=== PATIENT | male | born 1965 | race Caucasian/White ===

== ENCOUNTER 2017-04-09 10:17 | Inpatient (IN) | payer OTHER ==
--- NOTE | ~2017-04-09 | HP ---
Unit #: [id number] #: [id number] Patient: GT DOLL [id number] [place] [address] [id number] I MR#: [id number] NAME: GT DOLL ROOM: P180 Age: 51 Sex: M Admission Date: 04/09/2017 : 1965 Attending Physician: Dm Hamilton M.D. Admitting Physician: Dm Hamilton M.D. Primary Care Physician: Generic Doctor Not In System HISTORY AND PHYSICAL HISTORY OF PRESENT ILLNESS Gt is a 51 year old admitted to [facility] because of his abuse of alcohol. He is detoxing. PAST MEDICAL HISTORY 1. History of alcohol abuse 2. High blood pressure 3. COPD 4. History of DVT with PE PAST SURGICAL HISTORY Nothing reported ALLERGIES No known drug allergies. SOCIAL HISTORY Smokes one pack per day. Drinks at least a case of beer on a daily basis. Denies illicit drug use. FAMILY HISTORY Medically noncontributory. REVIEW OF SYSTEMS CONSTITUTIONAL: No fever or chills. HEENT: Denies any sore throat, ear pain or runny nose. CARDIOVASCULAR: Denies chest pain, irregular heart rhythm or palpitations. CHEST: Denies shortness of breath or cough. No hemoptysis. GASTROINTESTINAL: Denies nausea, vomiting, diarrhea or chronic constipation. ENDOCRINE: Denies history of increased thirst or urination. No recent significant weight loss or gain. GENITOURINARY: Denies dysuria, frequency, or hematuria. SKIN: Denies any rashes. HEMATOLOGIC: Denies history of increased bleeding or bruising. MUSCULOSKELETAL: Denies any hot, swollen joints. No generalized muscle pain. NEUROLOGIC: Denies problems with vision or speech. No frequent, severe headaches. No numbness, tingling or weakness in any extremities. Denies loss of bladder or bowel control. CURRENT MEDICATIONS Unit #: [id number] #: [id number] Patient: GT DOLL 1. Detox protocol 2. Xarelto 20 mg q day 3. Zestril 10 mg q day 4. Lexapro 10 mg q day 5. Trazodone 150 mg q.h.s. 6. Remeron 30 mg q.h.s. 7. Salsalate 500 mg b.i.d. 8. Pepcid 20 mg b.i.d. PHYSICAL EXAMINATION GENERAL: Alert, appearing much older than his stated age, in no apparent distress. VITAL SIGNS: Blood pressure 140/94, heart rate 100, respirations 16, temperature 98.6. WEIGHT: 150 pounds. HEIGHT: 5'10". SKIN: Unable to assess HEENT: Normocephalic. TMs not viewed. Oral and nasal passages clear. Pupils equal, round and reactive to light. NECK: Supple without lymphadenopathy. HEART: Rate and rhythm is regular. CHEST: Decrease breath sounds but clear. ABDOMEN: Soft, nontender. : Unable to assess. EXTREMITIES: Unable to assess. NEUROLOGICAL: Very tremulous but moves all extremities without focal deficit. Gait is unsteady. He is in a wheelchair. IMPRESSION Psychiatric admission. RECOMMENDATIONS PSYCHIATRIC: Per psychiatrist. MEDICAL: I see no contraindications to participating in facility's activities. MEDICAL PROGNOSIS Good. MEDICAL CONDITION Stable. Dictated by... Jessica OrtizAJose. for Monica Garcia/alexsandra TD: 04/11/2017 00:10 JOB #: [id number] Unit #: [id number] #: [id number] Patient: GT DOLL HISTORY AND PHYSICAL Page 1 of 1 X Quyen Berger HISTORY AND PHYSICAL
--- NOTE | ~2017-04-09 | DS ---
Unit #: [id number] #: [id number] Patient: JASMIN DOLL [id number] [place] [address] [id number] I MR#: [id number] NAME: JASMIN DOLL ROOM: 80 Age: 51 Sex: M Admission Date: 04/09/2017 : 1965 Discharge Date: 04/13/2017 Attending Physician: Dm Hamilton M.D. Primary Care Physician: Generic Doctor Not In System DISCHARGE SUMMARY REASON FOR ADMISSION Alcohol dependence with withdrawal. DIAGNOSTIC STUDIES PERTINENT LABORATORY WORK: RPR that was nonreactive. Urinalysis showed 0.2 urobilinogen, was otherwise negative. No other labs were performed here as many others have been performed at [facility] facility before he was transferred and they were all in acceptable parameters. HOSPITAL COURSE The patient was admitted for safety and stabilization for long-term alcohol dependency and withdrawal and was placed on alcohol withdrawal protocol accordingly. Patient had complained of symptoms of diaphoresis, aches and pains, tremors, upset stomach, fatigue, anxiety, leg twitches, leg cramps, sleep disturbance. Patient had been maintained on his outpatient medication regimen without deviation in addition to the CIWA protocol he was placed on. Overall course of hospitalization, the patient showed gradual improvement to time of discharge where he was having no active symptoms. He was much more energetic and appropriate. He had been fairly isolative to himself during the entire admission according to staff. At time of discharge, there was no actual evidence of SI or HI even though he did have a history of major depressive symptoms. He had initially reported some mild symptoms when he first came in, in terms of feeling hopeless about the situation but was not having any suicidal thoughts. He was at his baseline functionality and was actively seeking help. At time of discharge, it was felt patient had reached maximum benefit from admission and was appropriate for discharge. During this hospitalization, patient had a nurse practitioner medical consult because of issues with chronic pain regarding his ribs. He was placed on p.r.n. tramadol. This was not continued at time of discharge and he was aware of that and he was accepting of it. Patient was encouraged to followup with his primary care doctor for any further pain med needs. No other consults noted. Again at time of discharge, it was felt patient reached maximum benefit and was appropriate for discharge to his home area with followup with primary care doctor at [place]. DISCHARGE DIAGNOSES 1. Alcohol dependency with withdrawal. 2. Major depressive disorder, mild. 3. Hypertension. 4. Chronic pain issues. Unit #: [id number] #: [id number] Patient: JASMIN DOLL FOLLOWUP CARE Discharge instructions for followup is with his primary care doctor at the [facility] as per patient's request. DISCHARGE MEDICATIONS 1. Xarelto 20 mg daily for pain issues. 2. Zestril 10 mg daily for hypertension. 3. Lexapro 10 mg daily for depression. 4. Trazodone 150 mg at bedtime for sleep. 5. Remeron 30 mg at bedtime for depression. 6. Salsalate 500 mg b.i.d. for pain. 7. Pepcid 20 mg b.i.d. for GERD. 8. Neurontin 600 mg t.i.d. for pain. CONDITION AT DISCHARGE Improved. PROGNOSIS Guarded given the patient's longstanding alcohol abuse history. DIET AND ACTIVITY Diet is heart healthy. Activity is as tolerated. Sobriety encouraged and compliance encouraged. Dictated by... Dm Hamilton M.D. BOZENA/lona TD: 04/13/2017 15:27 JOB #: [id number] DISCHARGE SUMMARY Page 1 of 1 X Dm Hamilton MD X DISCHARGE SUMMARY
--- NOTE | ~2017-04-09 | PN ---
Unit #: [id number] #: [id number] Patient: JASMIN DOLL [id number] [facility] [address] [place] [address] [id number] MR#: [id number] NAME: JASMIN DOLL ROOM: P180 Age: 51 Sex: M Admission Date: 04/09/2017 : 1965 Attending Physician: Dm Hamilton M.D. Admitting Physician: Dm Hamilton M.D. Primary Care Physician: Generic Doctor Not In System [facility] PROGRESS NOTES DATE 04/11/2017 SUBJECTIVE UPDATE This is a 51-year-old white male here with ongoing issues with significant alcohol detox. Patient reports feeling very tired, fatigued. He was somewhat drowsy and somnolent today having received medications this morning. Still complaining of aches, pains, upset stomach, headaches, depression, feeling "bad." Cooperation overall was somewhat limited today. Staff denied any behavioral issues from the patient. Pulse was elevated around 123 but blood pressure was managed well with medications. MENTAL STATUS EXAM General appearance is a limitedly groomed white male, appears older than stated age, limited cooperation today his speech was clear but brief. Mood was somewhat sedate, anxious, dysphoric with a blunted affect. Thought process and content were fairly organization and linear. No active SI or HI today. Patient's memory was grossly intact. Associations were normal. Cognitive functioning was at baseline somewhat slowed. He was alert and oriented times four. Insight and judgement is impaired. ASSESSMENT AND RECOMMENDATIONS Continue the patient's admission for safety and stabilization for ongoing detox issues. Patient still having symptoms as noted above and progress is ongoing with the program. We will continue to monitor to encourage ambulation and socialization and interactions with groups and activities as much as tolerated. The patient's care is ongoing at this point. Dictated by... Dm Hamilton M.D. BOZENA/alexsandra TD: 04/12/2017 00:58 JOB #: [id number] Unit #: [id number] #: [id number] Patient: JASMIN DOLL PROGRESS NOTES Page 1 of 1 X Dm Hamilton MD PROGRESS NOTE
--- NOTE | ~2017-04-09 | A ---
[facility] Nutrition Therapy DATE: 04/10/17 Patient: JASMIN DOLL Physician: TREVIN Address: [address] [place] [address] Room/Bed: [address], Zip: [place] [address] Admit Date: 04/09/17 Date of : [birth year] Height: 5 10 Weight: 149 68.0388 NUTRITIONAL ASSESSMENT: REASON: NUTRITION RISK POINT- UNINTENTIONAL WEIGHT LOSS PATIENT ADMITTED FOR ETOH DETOX PMH: HTN, COPD Anthropometrics: HT: 5'10", WT: 150#, BMI: 21.5, %IBW: 90 Labs: NO NUTRITION LABS AVAILABLE Meds: ZESTRIL, TRAZODONE, REMERON, NEURONTIN, DETOX PROTOCOL Assessment: PATIENT IS A 51 Y/O MALE ADMITTED FOR ETOH DETOX. PATIENT IS CURRENTLY UNEMPLOYED, LIVES WITH HIS GIRLFRIEND, SMOKES 1 PPD, HAS DAILY ETOH USE, AND DENIES ILLICIT SUBSTANCE ABUSE. PATIENT HAS BEEN HAVING FREQUENT FALLS D/T ETOH USE AND REPORTS A L-7TH RIB FX. PATIENT HAS A HX OF INPATIENT CHEMICAL DEPENDENCY TREATMENT. PATIENT STATED A POOR APPETITE WITH A 10# WEIGHT LOSS X LAST SEVERAL WEEKS, AND HE HAS INSOMNIA. NURSING REPORTS GOOD PO INTAKES AND THAT PATIENT HAS HAD A LOOSE STOOL X1 AND SOME C/O NAUSEA. THERE ARE NO SKIN ISSUES NOTED ATT. PATIENT'S BMI IS WITHIN A HEALTHY RANGE AND HE IS 90% OF HIS IBW. PATIENT IS ON A REGULAR DIET WITH NO CAFFEINE. CURRENT PSYCH MEDS MAY CAUSE WEIGHT AND APPETITE FLUCTUATIONS. Dx: UNINTENTIONAL WEIGHT LOSS R/T ETOH DETOX AEB SELF-REPORTED WEIGHT LOSS, DECREASED APPETITE, NUTRITIONAL RISK POINT Intervention: REGULAR DIET WITH NO CAFFEINE, MEDS PER MD, DETOX, PSYCH Monitoring, Evaluation and Goals: 1. ADEQUATE PO INTAKES >50% OF MEALS 2. PREVENT, CORRECT MICRO/MACRO NUTRIENT DEFICIENCIES MONITOR: WEIGHTS, LABS, PO/FLUID INTAKES Recommendations: 1. CONTINUE REGULAR DIET WITH NO CAFFEINE TOLERATED. PLEASE OFFER SNACKS BETWEEN MEALS. 2. ENCOURAGE ADEQUATE PO AND FLUID INTAKES 3. OBTAIN WEIGHTS ROUTINELY (EVERY 3-4 DAYS) 4. IF PATIENT'S PO INTAKES FALL BELOW 50% OF MEALS PLEASE ORDER ENSURE BID TO PROMOTE ADEQUATE KCAL AND PROTEIN INTAKES [facility] Nutrition Therapy DATE: 04/10/17 Patient: JASMIN DOLL Physician: TREVIN Address: [address] [place] [address] Room/Bed: P180-[address] [facility], Zip: [place] [address] Admit Date: 04/09/17 Date of : [birth year] Height: 5 10 Weight: [address] TO F/U PER PROTOCOL AND PRN R/T PATIENT MILDLY COMPROMISED Respectfully, PAMELA THOMAS RD, LD [employer] [facility] cc: client file
--- NOTE | ~2017-04-09 | PA ---
Unit #: [id number] #: [id number] Patient: JASMIN DOLL [id number] [place] [address] [id number] I MR#: [id number] NAME: JASMIN DOLL ROOM: P180 Age: 51 Sex: M Admission Date: 04/09/2017 : 1965 Date of Assessment: 04/10/2017 Attending Physician: Dm Hamilton M.D. Admitting Physician: Dm Hamilton M.D. Primary Care Physician: Generic Doctor Not In System [facility]IATRIC [facility], [facility] #[facility], bed #1. INFORMANTS The patient and chart, both seem reliable. CHIEF COMPLAINT "I've got to stop drinking." HISTORY OF PRESENT ILLNESS This is a 51-year-old white male with longstanding history of alcohol dependency and major depressive disorder. The patient presents now drinking a 6 pack or more of beer a day, every day. He has been doing this for many, many years. He started drinking at the age of 8. The patient reports he went through detox about a month ago in [place], [place], but almost immediately relapsed afterwards and has been drinking every day since. The patient was noted to have visibly tremors in upper extremities. Complains of feeling weak, upset stomach, headache, aches and pains and diaphoretic. He denies any SI or HI now, but apparently there was some mention of this on initial evaluation, but nothing present at this time. The patient reports compliance with his medications that he gets through the [facility] and has fair enough insight that the alcoholism is deteriorating his overall condition. He seems to be motivated at this time, but he does not want to "lose his girlfriend." PAST PSYCHIATRIC HISTORY Treatment through the [facility] system, medications. No overt history of true suicidal actions or anything of that nature. No history of HI or any psychosis. FAMILY HISTORY Significant for a sister who at the age of 18 from alcohol poisoning. 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 High school degree in terms of education. MEDICAL HISTORY Significant for issues with hypertension and pain issues with his back and recent rib damage. MEDICATION HISTORY Unit #: [id number] #: [id number] Patient: JASMIN DOLL Includes Xarelto 20 mg daily, Zestril 10 mg daily, Lexapro 10 mg daily, trazodone 150 at bedtime, Remeron 30 mg at bedtime, salsalate 500 mg b.i.d., Pepcid 20 mg b.i.d., Neurontin 600 mg t.i.d. SUBSTANCE ABUSE HISTORY As noted above. The patient denied any other drugs or substances without any history of seizures or psychosis from withdrawal. Denied any history of intubation or other medical complications from his alcohol use. MENTAL STATUS EXAMINATION General appearance; this is a limitedly groomed white male, appears significantly older than stated age, moderately well cooperative with interview. Speech was clear and coherent. Well prosody. Mood was dysphoric, anxious and constricted with a blunted affect. Thought process and content were grossly organized and linear. No overt evidence of psychosis. The patient denied any active SI or HI. The patient's memory was grossly intact. Associations were normal. Cognitive function is at baseline. Alert and oriented x4. Insight and judgment are chronically impaired. ASSETS AND LIABILITIES Assets include exposure to treatment previously from standpoint, support through girlfriend and established outpatient providers for medical care. Liabilities include continued alcohol use and poor follow through with treatment outpatient. ADMITTING DIAGNOSES 1. Alcohol dependency with withdrawal. 2. Major depressive disorder, recurrent, mild. 3. Hypertension. 4. Acute on chronic pain issues. PSYCHIATRIC PLAN Continue the patient's admission for safety and stabilization for ongoing issues with alcohol dependency and related withdrawal. The patient is to be put on appropriate [facility] protocol and monitored accordingly. The patient will be maintained on his home medications as noted above as [facility] as well as other health issues. Treatment goals were resolutions of symptoms in a safe controlled environment and monitored accordingly with discharge planning most likely they are looking at residential and/or community resources in [place], [place], patient's home area. ESTIMATED LENGTH OF STAY Approximately 4 to 5 days depending on the patient's progress and response to treatment. Dictated by... Monica Nuñez/lucy TD: 04/11/2017 00:49 JOB #: [id number] Unit #: [id number] #: [id number] Patient: JASMIN DOLL PSYCHIATRIC ASSESSMENT Page 1 of 1 X Dm Hamilton MD PSYCHIATRIC ASSESSMENT
--- NOTE | ~2017-04-09 | PN ---
Unit #: [id number] #: [id number] Patient: JASMIN DOLL [id number] [facility] [address] [place] [address] [id number] MR#: [id number] NAME: JASMIN DOLL ROOM: P180 Age: 51 Sex: M Admission Date: 04/09/2017 : 1965 Attending Physician: Dm Hamilton M.D. Admitting Physician: Dm Hamilton M.D. Primary Care Physician: Generic Doctor Not In System [facility] PROGRESS NOTES DATE OF SERVICE: 04/12/2017 LOCATION [facility], [facility], room #180, bed #1. SUBJECTIVE This is a 51-year-old male with ongoing issues of alcohol dependency and withdrawal. The patient is continuing to report issues with aches and pains, poor energy, upset stomach, sleep disturbance, headaches, nauseousness, and tremor. They are better today and he was less focused on his back pain issues today as well, still somewhat sedate, having received Ativan, fortunately blood pressure has seemed to improve. The patient is still running tachycardic with pulse rate of 112. MENTAL STATUS EXAMINATION General appearance; this is a limitedly-groomed white male, appears older than stated age, moderate cooperation, limited eye contact. Speech was clear and coherent, but brief. Mood was somewhat sedate with a congruent affect. Thought process and content were grossly organized and linear. No overt evidence of psychosis. No SI. No HI reported or elicited. The patient's memory was grossly intact. Associations are normal. Cognitive function was at baseline. Alert and oriented x4. Insight and judgment are improving. RECOMMENDATIONS Continue the patient's admission for ongoing detox issues for symptoms as noted above. Overall, the patient is making good progress. Further care and stabilization would be appropriate given his history of alcohol use and ongoing complications. Continue to monitor regularly. Dictated by... Dm Hamilton M.D. SB/modl TD: 04/12/2017 11:06 JOB #: [id number] Unit #: [id number] #: [id number] Patient: JASMIN DOLL PROGRESS NOTES Page 1 of 1 X Dm Hamilton MD PROGRESS NOTE
--- NOTE | ~2017-04-09 | CO ---
Unit #: [id number] #: [id number] Patient: GT DOLL [id number] [facility] [address] [place] [address] [id number] I MR#: [id number] NAME: GT DOLL ROOM: P180 Age: 51 Sex: M Admission Date: 04/09/2017 : 1965 Attending Physician: Dm Hamilton M.D. Primary Care Physician: Generic Doctor Not In System Consultation Date: 04/11/2017 CONSULTATION REPORT HISTORY OF PRESENT ILLNESS Gt is a 51-year-old male, who reports Saturday he fell and broke his left rib. He was taken to the ER where the rib fracture was diagnosed. Now, he is having pain in his left side that is worse with breathing and for that reason, he is taking shallow breaths and is experiencing shortness of breath. No other complaints. PHYSICAL EXAMINATION CARDIAC: Regular rate and rhythm. No murmurs, gallops, or rubs. RESPIRATORY: Clear to auscultation bilaterally. MUSCULOSKELETAL: Pain with palpation of left rib wall. ASSESSMENT AND PLAN Rib fracture. We will begin tramadol p.o. b.i.d. Please discuss with Dr. Hamilton and request approval for this medication. The patient is detoxing from alcohol. We will also provide incentive spirometer for the patient to use every hour to prevent pneumonia. Dictated by... Leticia Grimes A.P.R.N. for Monica Garcia/lucy TD: 04/12/2017 00:02 JOB #: [id number] CONSULTATION REPORT Page 1 of 1 X LETICIA TRACEY APRN X CONSULTATION REPORT
[2017-04-10 10:01] LABS: URINE APPEARANCE CLEAR; URINE BILIRUBIN NEG (NEG); URINE BLOOD NEG (NEG); URINE COLOR DK YELLOW; URINE GLUCOSE NEG (NEG); URINE KETONE NEG (NEG); URINE LEUKOCYTE ESTERASE NEG (NEG); URINE NITRATE NEG (NEG); URINE PH 6.5 (5-8); URINE PROTEIN NEG (NEG); URINE SPECIFIC GRAVITY 1.012 (1.003-1.035); URINE UROBILINOGEN 0.2 MG/DL (NEG)
== END 2017-04-13 11:41 | disposition home or self-care (01) | DRG 897 ==
LOC: P1E 16:00
PROVIDERS: Psychiatry & Neurology Psychiatry
PROC: HZ2ZZZZ Detoxification Services for Substance Abuse Treatment (ICD-10-PCS; principal; 2017-04-09)
DX: F10.239 Alcohol dependence with withdrawal, unspecified (principal); F33.0 Major depressive disorder, recurrent, mild; I10 Essential (primary) hypertension; J44.9 Chronic obstructive pulmonary disease, unspecified; Z86.711 Personal history of pulmonary embolism; Z86.718 Personal history of other venous thrombosis and embolism; F17.210 Nicotine dependence, cigarettes, uncomplicated; S22.32XD Fracture of one rib, left side, subsequent encounter for fracture with routine healing; W19.XXXD Unspecified fall, subsequent encounter; G89.29 Other chronic pain
CPT/HCPCS: 81003; 86592